=== PATIENT | female | born 2000 | race Caucasian/White ===

== ENCOUNTER 2021-06-18 02:10 | Emergency (ER) | payer BC, MEDICAID ==
[~2021-06-18] VITALS: Ht 165.1 cm; Wt 78.8 kg
[2021-06-18 03:04] VITALS: BP 116/80
[2021-06-18] MEDS ORDERED: mag hydrox/Alum hydrox/simeth 30ml oral suspension PO ONE (03:30)
[2021-06-18] MEDS ORDERED: famotidine 20mg tablet PO ONE (03:30)
[2021-06-18] MEDS ORDERED: LIDOcaine Viscous 15ml cup MM ONE (03:30)
[2021-06-18] MEDS ORDERED: ondansetron 4mg rapidly disintigrating tab PO ONE (03:30)
== END 2021-06-18 04:26 | disposition home or self-care (01) ==
LOC: ER 02:11
DX: K21.9 Gastro-esophageal reflux disease without esophagitis (principal); Z88.2 Allergy status to sulfonamides
CPT/HCPCS: 93005; 99284